=== PATIENT | male | born 2000 | race Two or more races ===

== ENCOUNTER 2024-07-16 18:10 | Emergency (ER) | payer MEDICAID, SELFPAY ==
[2024-07-16 18:10] VITALS: BMI 22.8
[2024-07-16 18:38] VITALS: BP 114/69; PULSE 77; RESP 18; TEMP 37.1; O2SAT 97; BMI 22.8
--- NOTE | 2024-07-16 18:58 | PD.EDWOUND ---
ED Wound/Laceration-RME/HPI General Chief Complaint: Wound/Laceration Stated Complaint: I HAVE A SPLINTER ON MY R MIDDLE FINGER Time Seen by Provider: 07/16/24 18:28 Arrival date/time: 07/16/24 18:10 RME / HPI RME / HPI narrative: 24-year-old male patient came in for evaluation regarding splinter to the right middle finger. Patient was working and wood splinter went into the right middle fingertip patient tried to remove it with no success went to urgent care and was advised to come to us. Tetanus vaccination is unknown Related Data Allergies Allergy/AdvReac Type Severity Reaction Status Date / Time No Known Allergies Allergy Verified 07/16/24 18:12 Review of Systems Review of Systems Narrative Review of Systems: Review of system reviewed and within normal limits except mentioned in HPI ED Exam Narrative Physical exam: VITAL SIGNS: Reviewed. GENERAL APPEARANCE: Alert and interactive, follows commands, no acute distress, HEAD AND FACE: Non-traumatic. ENT: PERRL, pink conjunctivitis, eyelid no trauma, Mucous membrane moist. NECK: Supple, nontender, no nuchal rigidity. CHEST: No tenderness, no crepitus, no paradoxical movement, no retractions. LUNGS: Clear, well ventilated, symmetric, no rales, no wheezing, no ronchi, no stridor, good breath sounds bilaterally. HEART: Regular rate, regular rhythm, no murmur, no gallops. ABDOMEN: Soft, positive bowel sounds, nondistended, no guarding, nontender, no rebound, no masses, RECTAL: Deferred. GENITAL: Deferred. NEUROLOGICAL: Gross motor function intact sensory function intact, Appropriate for age. MUSCULOSKELETAL: low back nontender, full range of motion. EXTREMITIES: Puncture wound to the right middle fingertip with tenderness, full range of motion. SKIN: Color pink, dry, no rash, no lacerations, no abrasions, no contusions. LYMPHATICS: Deferred. Course Quality Measures none Orders Category Date Time Status Set Up Suture Tray STAT Care 07/16/24 18:57 Active Lidocaine 1% 20 ml [Xylocaine 1% 20 ML] Med 07/16/24 19:00 Discontinued 10 ml INFL X1 ONE Lidocaine 1% Pf 5 ml [Xylocaine 1% Pf 5 ml] Med 07/16/24 18:57 Discontinued 10 ml INFL X1 ONE TET,DIP/PERT AC (Adult)-Tdap [Boostrix Adult (Tdap) Med 07/16/24 18:58 Discontinued Vacc] 0.5 ml IMI .ONCE ONE Vital Signs Vital signs: Vital Signs Temperature 98.7 F 07/16/24 18:38 Pulse Rate 77 07/16/24 18:38 Respiratory Rate 18 07/16/24 18:38 Blood Pressure 114/69 07/16/24 18:38 Pulse Oximetry (%) 97 07/16/24 18:38 Oxygen Delivery Method Room Air 07/16/24 18:38 Procedures -ED Foreign Body Removal Time Out Performed: yes Site: other (Finger) Description of foreign body: other (wood) Sedation/Analgesia: none Technique: incision made to facilitate removal Confirmed by:: direct visualization Complications: none Post-procedure exam: awake, alert Wound / Laceration MDM Narrative MDM Narrative:: 24-year-old male patient came in for evaluation regarding splinter to the right middle finger. Patient was working and wood splinter went into the right middle fingertip patient tried to remove it with no success went to urgent care and was advised to come to us. Tetanus vaccination is unknown Removal of foreign body was done by me, with success. See procedure notes Patient data External records reviewed:: None Clinical information provided by:: patient Social determinants that could affect healthcare access:: none Patient has the following chronic illnesses:: None How is presenting disease/condition affected by chronic disease/condition?: no chronic disease Evaluation data The following diagnostics were reviewed and interpreted by me:: other (specify) (None) Lab and/or radiology exams considered but not ordered:: None Interpretation Summary: None Medications / Prescriptions Medications or Prescriptions considered but not ordered:: None Medication administrations:: Medication Administration History Discontinued Medications Diphtheria/Tetanus/Acell Pertussis (Diphth,Pertuss(Acell),Tet Vac 0.5 Ml Syr- Adult) 0.5 ml IMi .ONCE ONE Stop: 07/16/24 18:59 Last Admin: 07/16/24 19:48 Dose: 0.5 ml Documented By: JAYNE Lidocaine HCl (Lidocaine Inj Pf 1% 5 Ml Vial) 10 ml INFL X1 ONE Stop: 07/16/24 18:58 Last Admin: 07/16/24 19:50 Dose: Not Given Documented By: JAYNE Non-Admin Reason: Discontinued Lidocaine HCl (Lidocaine Hcl 1% 20 Ml Vial) 10 ml INFL X1 ONE Stop: 07/16/24 19:01 Last Admin: 07/16/24 19:49 Dose: 10 ml Documented By: OA Boostrix, lidocaine Consultations Consultation(s) initiated? (list below): No Diagnosis Wound Differential Diagnosis: other (Foreign body finger) Most likely diagnosis given after review of the tests above:: Foreign body finger status post removal Admission Indicated Admission indicated?: not indicated Admission Request Was there a request for admission?: No Disposition Plan Disposition Plan: Discharge Discharge Attestation Discharge Attestation: The patient was given an opportunity to ask questions and understood the discharge instructions. Discharge instructions specifically effects, indications for sooner follow up or return to the emergency department, and the expected course of current diagnosis. Patient condition: Stable Discharge Plan Plan Patient Disposition: HOME (Self Care) Discharge Disposition comment: Stable Prescriptions/Referrals Referrals: No Primary/Family,Physician [Referring Provider] - In 1 week Problem List Clinical Impression: Foreign body of finger Patient/Caregiver Discharge Instructions Discharge Activity: activity as tolerated Education Materials: ED Foreign Body Soft Tissue Removed Additional Instructions: Thank you for the opportunity for serving you today. You are stable for discharged . You are advised to: Follow-up with your PCP in 1 to 2 days Return to ED for worsening of symptoms Increase oral fluids Daily dressing with Neosporin as needed Print Language: Telugu Stand Alone Forms: Sherine Award Info., Patient Portal Info Letter NOEL/MICAH Supervising Physician NOEL/MICAH Supervising Physician: MD Tonie
[2024-07-16] MEDS: DIPHTH,PERTUSS(ACELL),TET VAC 0.5 ML SYR- ADULT IMi (19:48)
[2024-07-16] MEDS: LIDOCAINE HCL 1% 20 ML VIAL 10 ML INFL (19:49)
== END 2024-07-16 20:15 | disposition home or self-care (01) ==
PROVIDERS: Emergency Provider Emergency Medicine; PCP Nurse Practitioner Family
DX: S60.452A Superficial foreign body of right middle finger, initial encounter (principal); W45.8XXA Other foreign body or object entering through skin, initial encounter; Z23 Encounter for immunization
CPT/HCPCS: 10120; 90471; 90715; 99283; J3490